=== PATIENT | male | born 1995 | race American Indian/Alaskan Native ===

== ENCOUNTER 2019-07-04 03:38 | Emergency (ER) | payer MEDICAID ==
[2019-07-04 04:45] LABS: Basophils % (Auto) 0.5 % (0.0-1.8); Eosinophils # (Auto) 0.1 K/mm3 (0.0-0.4); Eosinophils % (Auto) 1.4 % (0.0-4.3); Hematocrit 45.2 % (35.5-45.6); Hemoglobin 15.2 gm/dl (11.8-15.2); Lymphocytes # (Auto) 2.5 K/mm3 (1.2-5.4); Lymphocytes % (Auto) 24.3 % (13.4-35.0); Mean Corpuscular HGB Conc 34 % (32-34); Mean Corpuscular Volume 100 fl (84-94); Monocytes # (Auto) 1.4 K/mm3 (0.0-0.8); Platelet Count 255 K/mm3 (140-440); Red Blood Count 4.54 M/mm3 (3.65-5.03); Red Cell Distribution Width 14.7 % (13.2-15.2)
[2019-07-04 05:05] LABS: Alanine Aminotransferase 12 units/L (7-56); Albumin 4.1 g/dL (3.9-5); BUN/Creatinine Ratio 12; Blood Urea Nitrogen 12 mg/dL (9-20); Calcium 9.6 mg/dL (8.4-10.2); Hemolysis Index 8
[2019-07-04 07:26] LABS: Bilirubin,Urine NEG (Negative); Blood,Urine NEG (Negative); Color,Urine Yellow (Yellow); Protein,Urine <15 mg/dL mg/dL (Negative); Urobilinogen,Urine < 2.0 mg/dL (<2.0)
[2019-07-04] MEDS ORDERED: MORPHINE 4 MG/1 ML INJ IV ONE (11:33)
[2019-07-04] MEDS ORDERED: ONDANSETRON 4 MG/2 ML INJ IV ONE (11:33)
--- NOTE | 2019-07-04 11:38 | Emergency Department Report ---
ED Abdominal Pain HPI - General Chief Complaint: Abdominal Pain Stated Complaint: ABDOMINAL PAIN Time Seen by Provider: 07/04/19 11:29 Source: patient, EMS Mode of arrival: Wheelchair Limitations: No Limitations - History of Present Illness Initial Comments: Patient is 24 years old male with history of Crohn's disease followed by [facility]. Patient presented to the ER complaining of right lower quadrant abdominal pain for the last 3 days. Patient described his pain as sharp with no radiation associated with his nausea and vomiting and diarrhea. Patient denied any fever or chills. Patient stated than the last time he saw his GI doctor was last year. MD Complaint: abdominal pain -: days(s) (3) Location: RLQ Radiation: none Migration to: no migration Severity: moderate Quality: sharp - Related Data Allergies Allergy/AdvReac Type Severity Reaction Status Date / Time diphenhydramine Allergy Unknown Verified 07/04/19 03:47 [From Benadl] ED Review of Systems ROS: Stated complaint: ABDOMINAL PAIN Other details as noted in HPI Comment: All other systems reviewed and negative Constitutional: denies: chills, fever Respiratory: denies: cough, shortness of breath, SOB with exertion, wheezing Cardiovascular: denies: chest pain, palpitations Gastrointestinal: denies: abdominal pain, nausea, vomiting, diarrhea, constipation, hematemesis, melena, hematochezia Musculoskeletal: denies: back pain Neurological: denies: headache, weakness, numbness, paresthesias, confusion, abnormal gait ED Past Medical Hx - Past Medical History Previous Medical History?: Yes Hx Psychiatric Treatment: Yes (schizophrenia) Additional medical history: Crohns Disease - Surgical History Past Surgical History?: No - Social History Smoking Status: Current Every Day Smoker ED Physical Exam - General Limitations: No Limitations General appearance: alert, in no apparent distress - Head Head exam: Present: atraumatic, normocephalic, normal inspection - Eye Eye exam: Present: normal appearance - ENT ENT exam: Present: normal exam, normal orophraynx, mucous membranes moist - Neck Neck exam: Present: normal inspection, full ROM. Absent: tenderness, meningismus, lymphadenopathy, thyromegaly - Respiratory Respiratory exam: Present: normal lung sounds bilaterally - Cardiovascular Cardiovascular Exam: Present: regular rate, normal rhythm, normal heart sounds - GI/Abdominal GI/Abdominal exam: Present: soft, normal bowel sounds. Absent: distended, tenderness, guarding, rebound, rigid, organomegaly, mass, bruit, pulsatile mass, hernia - Extremities Exam Extremities exam: Present: normal inspection, full ROM, normal capillary refill. Absent: calf tenderness - Back Exam Back exam: Present: normal inspection, full ROM. Absent: CVA tenderness (R), CVA tenderness (L) - Neurological Exam Neurological exam: Present: alert, oriented X3, CN II-XII intact, reflexes normal - Psychiatric Psychiatric exam: Present: normal mood - Skin Skin exam: Present: warm, intact, normal color ED Course Vital Signs 07/04/19 07/04/19 07/04/19 03:46 11:44 13:16 Temperature 98.3 F Pulse Rate 77 68 66 Respiratory 18 14 14 Rate Blood Pressure 110/75 Blood Pressure 106/70 110/74 [Left] O2 Sat by Pulse 100 100 97 Oximetry ED Medical Decision Making - Lab Data Result diagrams: 07/04/19 04:28 07/04/19 04:28 - Radiology Data Radiology results: report reviewed - Medical Decision Making Patient is 24 years old male with history of Crohn's disease followed by [facility]. Patient presented to the ER complaining of right lower quadrant abdominal pain for the last 3 days. Patient described his pain as sharp with no radiation associated with his nausea and vomiting and diarrhea. Patient denied any fever or chills. Patient stated than the last time he saw his GI doctor was last year. Patient received morphine, Zofran and Solu-Medrol. Labs reviewed and is unremarkable. CT abdomen and pelvis showed inflammation into the bowel area consistent with Crohn's exacerbation. Patient advised to follow up with his GI doctor in the next 2-3 days and to return to the ER if symptoms are not improved. Critical care attestation.: If time is entered above; I have spent that time in minutes in the direct care of this critically ill patient, excluding procedure time. ED Disposition Clinical Impression: Abdominal pain, Exacerbation of Crohn's disease Disposition: TO HOME OR SELFCARE Is pt being admited?: No Condition: Stable Instructions: Crohn Disease (ED), Acute Abdominal Pain (ED) Referrals: PRIMARY CARE, [Primary Care Provider] - 3-5 Days
--- NOTE | 2019-07-04 13:41 | Cat Scan Report ---
CT ABDOMEN AND PELVIS WITH CONTRAST INDICATION / CLINICAL INFORMATION: abdominal pain/ h/o Crohn's disease. TECHNIQUE: Axial CT images were obtained through the abdomen and pelvis after 100 mL Omnipaque [address] scans at this location are performed using CT dose reduction for ALARA by means of automated exposure control. COMPARISON: None available. FINDINGS: LOWER CHEST: No significant abnormality. LIVER: No significant abnormality. GALLBLADDER: No significant abnormality. BILE DUCTS: No significant abnormality. PANCREAS: No significant abnormality. SPLEEN: No significant abnormality. ADRENALS: No significant abnormality. RIGHT KIDNEY and URETER: No significant abnormality. LEFT KIDNEY and URETER: No significant abnormality. STOMACH and SMALL BOWEL: There is mild thickening and mucosal enhancement of loops of distal and term inal ileum. No acute inflammation or abscess. No bowel obstruction. COLON: No significant abnormality. APPENDIX: No significant abnormality. PERITONEUM: No free fluid. No free air. No fluid collection. LYMPH NODES: No significant adenopathy. AORTA and ARTERIES: No significant abnormality. IVC and VEINS: No significant abnormality. URINARY BLADDER: No significant abnormality. REPRODUCTIVE ORGANS: No significant abnormality. ADDITIONAL FINDINGS: None. SKELETAL SYSTEM: No significant abnormality. IMPRESSION: 1. Mild thickening and mucosal enhancement of loops of distal and terminal ileum which can be seen wi th inflammatory bowel disease such as Crohn's disease. 2. No bowel obstruction. No abscess. Signer Name: Abdirahman Lopez MD Signed: 07/04/2019 1:36 PM Workstation Name: [id number]
[2019-07-04] MEDS ORDERED: methylPREDNISolone Sod Succinate 125 MG/2 ML INJ IV ONE (13:57)
[2019-07-04 16:21] VITALS: BP 106/61
== END 2019-07-04 16:22 | disposition home or self-care (01) ==
LOC: ED 03:38
DX: K50.90 Crohn's disease, unspecified, without complications (principal); F20.89 Other schizophrenia; Z88.8 Allergy status to other drugs, medicaments and biological substances
CPT/HCPCS: 36415; 74177; 80053; 81001; 85025; 96374; 96375; 99284; J2270; J2405; J2930; Q9967

== ENCOUNTER 2021-06-14 01:44 | Emergency (ER) | payer MEDICAID ==
[2021-06-14] MEDS ORDERED: SODIUM CHLORIDE 0.9% 1000 ML 1,000 ML IV ONE (11:05)
[2021-06-14] MEDS ORDERED: DICYCLOMINE 20 MG TAB PO ONE (11:05)
[2021-06-14] MEDS ORDERED: FAMOTIDINE 20 MG/2 ML INJ IV ONE (11:05)
[2021-06-14] MEDS ORDERED: METOCLOPRAMIDE 10 MG/2 ML INJ IV ONE (11:05)
[2021-06-14] MEDS ORDERED: MORPHINE 4 MG/1 ML INJ IV ONE (11:06)
[2021-06-14 11:18] LABS: Alanine Aminotransferase 8 units/L (7-56); Albumin 3.8 g/dL (3.9-5); BUN/Creatinine Ratio 11; Blood Urea Nitrogen 11 mg/dL (9-20); Calcium 9.1 mg/dL (8.4-10.2); Hemolysis Index 1
[2021-06-14 11:23] LABS: Basophils # (Auto) 0.1 K/mm3 (0.0-0.1); Basophils % (Auto) 0.8 % (0.0-1.8); Eosinophils # (Auto) 0.1 K/mm3 (0.0-0.4); Eosinophils % (Auto) 1.3 % (0.0-4.3); Hematocrit 40.9 % (35.5-45.6); Hemoglobin 12.9 gm/dl (11.8-15.2); Lymphocytes # (Auto) 1.7 K/mm3 (1.2-5.4); Mean Corpuscular HGB Conc 32 % (32-34); Mean Corpuscular Volume 99 fl (84-94); Monocytes % (Auto) 12.1 % (0.0-7.3); Platelet Count 275 K/mm3 (140-440); Red Blood Count 4.12 M/mm3 (3.65-5.03); Red Cell Distribution Width 14.1 % (13.2-15.2)
--- NOTE | 2021-06-14 12:01 | Emergency Department Report ---
ED Abdominal Pain HPI - General Chief Complaint: Abdominal Pain Stated Complaint: ABDOMIANAL PAIN Time Seen by Provider: 06/14/21 09:43 Source: EMS Mode of arrival: Stretcher Limitations: No Limitations - History of Present Illness Initial Comments: This is a 26-year-old male nontoxic, well nourished in appearance, no acute signs of distress presents to the ED with c/o of nausea and vomiting and abdominal pain 2 days. Patient describes vomiting as food content and yellow gastric acid. Patient describes abdominal pain as cramping and aching with level of 8/10 diffuse. Patient denies chest pain, short of breath, fever, hemoptysis, blood in stool, chills, headache, stiff neck, numbness or tingling. Patient denies any diarrhea or constipation. Denies any blood in stool. Patient denies any recent travels. Patient stated allergies to Benadryl. MD Complaint: abdominal pain -: days(s) Location: RLQ Radiation: none Migration to: no migration Severity: mild Severity scale (0 -10): 8 Quality: cramping, aching Consistency: constant Improves With: nothing Worsens With: nothing Associated Symptoms: nausea, vomiting. denies: diarrhea, fever, chills, constipation, dysuria, hematemesis, hematochezia, melena, hematuria, anorexia, syncope - Related Data Previous Rx's Medication Instructions Recorded Last Taken Type Ondansetron [Zofran Odt] 4 mg PO Q8HR PRN #14 tab.rapdis 07/04/19 Unknown Rx Prednisone [predniSONE 10 mg 10 mg PO .TAPER #1 tab.ds.pk 07/04/19 Unknown Rx (6-Day Pack, 21 Tabs)] traMADoL [Ultram 50 MG tab] 50 mg PO Q4HR PRN #14 tablet 07/04/19 Unknown Rx Dicyclomine [Bentyl] 20 mg PO BID PRN #10 tablet 06/14/21 Unknown Rx Ondansetron [Zofran Odt] 4 mg PO Q8HR PRN #12 tab.rapdis 06/14/21 Unknown Rx Allergies Allergy/AdvReac Type Severity Reaction Status Date / Time diphenhydramine Allergy Unknown Verified 07/04/19 03:47 [From Benadryl] ED Review of Systems ROS: Stated complaint: ABDOMIANAL PAIN Other details as noted in HPI Comment: All other systems reviewed and negative Constitutional: denies: chills, fever Eyes: denies: eye pain, eye discharge, vision change ENT: denies: ear pain, throat pain Respiratory: denies: cough, shortness of breath, wheezing Cardiovascular: denies: chest pain, palpitations Endocrine: no symptoms reported Gastrointestinal: abdominal pain, nausea, vomiting. denies: diarrhea, constipation, hematemesis, melena, hematochezia Genitourinary: denies: urgency, dysuria Musculoskeletal: denies: back pain, joint swelling, arthralgia Skin: denies: rash, lesions Neurological: denies: headache, weakness, paresthesias Psychiatric: denies: anxiety, depression Hematological/Lymphatic: denies: easy bleeding, easy bruising ED Past Medical Hx - Past Medical History Hx Psychiatric Treatment: Yes (schizophrenia) Additional medical history: Crohns Disease - Social History Smoking Status: Current Every Day Smoker - Medications Home Medications: Home Medications Medication Instructions Recorded Confirmed Last Taken Type Ondansetron [Zofran Odt] 4 mg PO Q8HR PRN #14 tab.rapdis 07/04/19 Unknown Rx Prednisone [predniSONE 10 mg 10 mg PO .TAPER #1 tab.ds.pk 07/04/19 Unknown Rx (6-Day Pack, 21 Tabs)] traMADoL [Ultram 50 MG tab] 50 mg PO Q4HR PRN #14 tablet 07/04/19 Unknown Rx Dicyclomine [Bentyl] 20 mg PO BID PRN #10 tablet 06/14/21 Unknown Rx Ondansetron [Zofran Odt] 4 mg PO Q8HR PRN #12 tab.rapdis 06/14/21 Unknown Rx ED Physical Exam - General Limitations: No Limitations General appearance: alert, in no apparent distress - Head Head exam: Present: atraumatic, normocephalic - Eye Eye exam: Present: normal appearance - Neck Neck exam: Present: normal inspection, full ROM. Absent: lymphadenopathy - Respiratory Respiratory exam: Present: normal lung sounds bilaterally. Absent: respiratory distress, wheezes, rales, rhonchi, stridor, chest wall tenderness, accessory muscle use, decreased breath sounds, prolonged expiratory - Cardiovascular Cardiovascular Exam: Present: regular rate, normal rhythm, normal heart sounds. Absent: bradycardia, tachycardia, irregular rhythm, systolic murmur, diastolic murmur, rubs, gallop - GI/Abdominal GI/Abdominal exam: Present: soft, tenderness (diffuse with worse in the upper abdomen area), normal bowel sounds. Absent: distended, guarding, rebound, rigid, diminished bowel sounds - Extremities Exam Extremities exam: Present: normal inspection, full ROM, normal capillary refill. Absent: tenderness - Back Exam Back exam: Present: normal inspection, full ROM. Absent: tenderness, CVA tenderness (R), CVA tenderness (L), muscle spasm, paraspinal tenderness, vertebral tenderness, rash noted - Neurological Exam Neurological exam: Present: alert, oriented X3, normal gait - Psychiatric Psychiatric exam: Present: normal affect, normal mood - Skin Skin exam: Present: warm, dry, intact, normal color. Absent: rash ED Course Vital Signs 06/14/21 01:51 Temperature 98.5 F Pulse Rate 67 Respiratory 16 Rate Blood Pressure 109/79 [Left] O2 Sat by Pulse 98 Oximetry - Reevaluation(s) Reevaluation #1: 06/14/21 12:01 Patient is speaking in full sentences with no signs of distress noted. ED Medical Decision Making - Lab Data Result diagrams: 06/14/21 10:29 06/14/21 10:29 Lab Results 06/14/21 06/14/21 06/14/21 Range/Units 10:29 10:29 Unknown WBC 8.3 (4.5-11.0) K/mm3 RBC 4.12 (3.65-5.03) M/mm3 Hgb 12.9 (11.8-15.2) gm/dl Hct 40.9 (35.5-45.6) % MCV 99 H (84-94) fl MCH 31 (28-32) pg MCHC 32 (32-34) % RDW 14.1 (13.2-15.2) % Plt Count 275 (140-440) K/mm3 Lymph % (Auto) 20.0 (13.4-35.0) % [place] % (Auto) 12.1 H (0.0-7.3) % Eos % (Auto) 1.3 (0.0-4.3) % Baso % (Auto) 0.8 (0.0-1.8) % Lymph # (Auto) 1.7 (1.2-5.4) K/mm3 [place] # (Auto) 1.0 H (0.0-0.8) K/mm3 Eos # (Auto) 0.1 (0.0-0.4) K/mm3 Baso # (Auto) 0.1 (0.0-0.1) K/mm3 Seg Neutrophils % 65.8 (40.0-70.0) % Seg Neutrophils # 5.5 (1.8-7.7) K/mm3 Sodium 140 (137-145) mmol/L Potassium 3.9 (3.6-5.0) mmol/L Chloride 102.1 (98-107) mmol/L Carbon Dioxide 26 (22-30) mmol/L Anion Gap 16 mmol/L BUN 11 (9-20) mg/dL Creatinine 1.0 (0.8-1.3) mg/dL Estimated GFR > 60 ml/min BUN/Creatinine Ratio 11 % Glucose 73 L (75-100) mg/dL Calcium 9.1 (8.4-10.2) mg/dL Total Bilirubin < 0.20 (0.1-1.2) mg/dL AST 12 (5-40) units/L ALT 8 (7-56) units/L Alkaline Phosphatase 74 (35-129) units/L Total Protein 5.6 L (6.3-8.2) g/dL Albumin 3.8 L (3.9-5) g/dL Albumin/Globulin Ratio 2.1 % Lipase 19 (13-60) units/L Urine Color Yellow (Yellow) Urine Turbidity Clear (Clear) Urine pH 5.0 (5.0-7.0) Ur Specific [place] 1.012 (1.003-1.030) Urine Protein <15 mg/dl (Negative) mg/dL Urine Glucose (UA) Neg (Negative) mg/dL Urine Ketones Neg (Negative) mg/dL Urine Blood Neg (Negative) Urine Nitrite Neg (Negative) Urine Bilirubin Neg (Negative) Urine Urobilinogen < 2.0 (<2.0) mg/dL Ur Leukocyte Esterase Neg (Negative) Urine WBC (Auto) 0.0 (0.0-6.0) /HPF Urine RBC (Auto) 0.0 (0.0-6.0) /HPF - Radiology Data [facility] [address] [place] [address] Cat Scan Report Signed Patient: SHARONA MIXON MR#: [id number] : 1995 Acct:[id number] Age/Sex: 26 / M ADM Date: 06/14/21 Loc: ED Attending Dr: Ordering Physician: LATOYA PRATHER NP Date of Service: 06/14/21 Procedure(s): CT abdomen pelvis w con Accession Number(s): [id number] cc: LATOYA PRATHER NP CT ABDOMEN AND PELVIS WITH CONTRAST INDICATION / CLINICAL INFORMATION: RLQ pain with nausea and vomiting. 100 ML OMNI 300. TECHNIQUE: Axial CT images were obtained through the abdomen and pelvis after IV contrast. All CT scans at this location are performed using CT dose reduction for ALARA by means of automated exposure control. COMPARISON: CT abdomen and pelvis with contrast from 07/04/2019. FINDINGS: LOWER CHEST: No significant abnormality. LIVER: No significant abnormality. BILIARY: The gallbladder is unremarkable. No biliary ductal dilatation. PANCREAS: No significant abnormality. SPLEEN: No significant abnormality. ADRENALS: No significant abnormality. KIDNEYS / URET ERS: No significant abnormality. GI TRACT: Multiple thickened and hyperemic ileal loops are noted with changes most notable along the terminal ileum. There is surrounding mild fat stranding. Associated mesenteric congestion is also noted. The remainder of the small bowel and the stomach are unremarkable. No acute colonic abnormalities. The appendix is not visualized. PERITONEUM: No free fluid. No free air. No fluid collection. LYMPH NODES: No significant adenopathy. VASCULATURE: No significant abnormality. URINARY BLADDER: No significant abnormality. REPRODUCTIVE ORGANS: No significant abnormality. ADDITIONAL FINDINGS: None. BONES: No significant abnormality. IMPRESSION: 1. Abnormal appearance of the distal ileum is most concerning for an acute exacerbation of inflammatory bowel disease. Other infectious/inflammatory etiologies should also be considered. 2. Limited visualization of the appendix. Please correlate clinically to exclude coexisting acute appendicitis. Signer Name: Austin Jacobsen MD Signed: 06/14/2021 3:49 PM Workstation Name: [id number] Transcribed By: KEVIN Dictated By: Austin Jacobsen MD Electronically Authenticated By: Austin Jacobsen MD Signed Date/Time: 06/14/21 1549 DD/ 154 TD/TT: - Medical Decision Making This is a 26-year-old male that presents with abdominal pain with n/v. Patient is stable and was examined by me. Exam does not show appendicitis. Negative signs of symptoms of appendicitis. Labs obtained. UA obtained. CT of abdomen obtained and dictated by the radiologist. Patient is notified of the report with no questions noted by the patient. Vital signs are stable prior to discharge. Patient received medical treatment in the ED which patient stated symptoms has resovled and subsided. Was instructed note to operate any machinery due to possible drowsiness and stated someone will drive the patient home. A by mouth challenge has been obtained and patient tolerated well with no nausea vomiting. Patient was notified of strict precatuions of appendictis symptoms and to return to the ED if symptoms occurs as soon as possible. Patient was also instructed to Follow-up with a primary care doctor in 3-5 days or if symptoms worsen and continue return to emergency room as soon as possible. At time of discharge, the patient does not seem toxic or ill in appearance. No acute signs of distress noted. Patient agrees to discharge treatment plan of care. No further questions noted by the patient. The patient was evaluated in the emergency department for symptoms described in the history of present illness. He/she was evaluated in the context of the global COVID-19 pandemic, which necessitated consideration that the patient might be at risk for infection with the virus that causes COVID-19. Institutional protocols and algorithms that pertain to the evaluation of patients at risk for COVID-19 are in a state of rapid change based on information released by regulatory bodies including the CDC and federal and state organizations. These policies and algorithms were followed during the patient's care in the emergency department. Please note that these policies, procedures and recommendations changed on a rapid basis. Critical care attestation.: If time is entered above; I have spent that time in minutes in the direct care of this critically ill patient, excluding procedure time. ED Disposition Clinical Impression: Abdominal pain Qualifiers: Abdominal location: generalized Qualified Code(s): R10.84 - Generalized abdominal pain Nausea & vomiting Qualifiers: Vomiting type: unspecified Qualified Code(s): R11.2 - Nausea with vomiting, unspecified IBS (irritable bowel syndrome) Qualifiers: Irritable bowel syndrome type: unspecified Qualified Code(s): K58.9 - Irritable bowel syndrome without diarrhea Disposition: 01 HOME / SELF CARE / HOMELESS Is pt being admited?: No Does the pt Need Aspirin: No Condition: Stable Instructions: Abdominal Pain, Adult, [id number], Nausea and Vomiting, Adult, [id number] Additional Instructions: Follow-up with a primary care and staff radiographer doctor in 3-5 days or if symptoms worsen and continue return to emergency room as soon as possible. Prescriptions: Dicyclomine [Bentyl] 20 mg PO BID PRN #10 tablet PRN Reason: abdominal pain Ondansetron [Zofran Odt] 4 mg PO Q8HR PRN #12 tab.rapdis PRN Reason: Nausea Referrals: PRIMARY MD OMEGA [Primary Care Provider] - 3-5 Days BIJAL ZACARIAS MD [Staff Physician] - 3-5 Days [facility] [Provider Group] - 3-5 Days Time of Disposition: 16:09
--- NOTE | 2021-06-14 15:53 | Cat Scan Report ---
CT ABDOMEN AND PELVIS WITH CONTRAST INDICATION / CLINICAL INFORMATION: RLQ pain with nausea and vomiting. 100 ML OMNI 300. TECHNIQUE: Axial CT images were obtained through the abdomen and pelvis after IV contrast. All CT scans at this location are performed using CT dose reduction for ALARA by means of automated exposure control. COMPARISON: CT abdomen and pelvis with contrast from 07/04/2019. FINDINGS: LOWER CHEST: No significant abnormality. LIVER: No significant abnormality. BILIARY: The gallbladder is unremarkable. No biliary ductal dilatation. PANCREAS: No significant abnormality. SPLEEN: No significant abnormality. ADRENALS: No significant abnormality. KIDNEYS / URETERS: No significant abnormality. GI TRACT: Multiple thickened and hyperemic ileal loops are noted with changes most notable along the terminal ileum. There is surrounding mild fat stranding. Associated mesenteric congestion is also not ed. The remainder of the small bowel and the stomach are unremarkable. No acute colonic abnormalities . The appendix is not visualized. PERITONEUM: No free fluid. No free air. No fluid collection. LYMPH NODES: No significant adenopathy. VASCULATURE: No significant abnormality. URINARY BLADDER: No significant abnormality. REPRODUCTIVE ORGANS: No significant abnormality. ADDITIONAL FINDINGS: None. BONES: No significant abnormality. IMPRESSION: 1. Abnormal appearance of the distal ileum is most concerning for an acute exacerbation of inflammato ry bowel disease. Other infectious/inflammatory etiologies should also be considered. 2. Limited visualization of the appendix. Please correlate clinically to exclude coexisting acute rodolfo endicitis. Signer Name: Austin Jacobsen MD Signed: 06/14/2021 3:49 PM Workstation Name: [id number]
[2021-06-14 15:58] LABS: Bilirubin,Urine NEG (Negative); Blood,Urine NEG (Negative); Color,Urine Yellow (Yellow); Protein,Urine <15 mg/dL mg/dL (Negative); Urobilinogen,Urine < 2.0 mg/dL (<2.0)
[2021-06-14 18:26] VITALS: BP 113/71
== END 2021-06-14 18:29 | disposition home or self-care (01) ==
LOC: ED 01:44
DX: R10.9 Unspecified abdominal pain (principal); R11.2 Nausea with vomiting, unspecified; K58.9 Irritable bowel syndrome, unspecified; Z88.8 Allergy status to other drugs, medicaments and biological substances; F17.200 Nicotine dependence, unspecified, uncomplicated; F20.9 Schizophrenia, unspecified
CPT/HCPCS: 36415; 74177; 80053; 81001; 83690; 85025; 96361; 96374; 96375; 99284; J2270; J2765; J3490; J7030; Q9967; Q0162